=== PATIENT | female | born 1985 | race African-American/Black ===

== ENCOUNTER 2021-12-31 16:16 | Emergency (ER) | payer OTHER, SELFPAY ==
[2021-12-31 16:22] VITALS: BP 141/84; PULSE 64; RESP 18; TEMP 36.7; O2SAT 99; BMI 30.2
--- NOTE | 2021-12-31 16:48 | PC.NURSE ---
Patient provided stool and urine sample. Stool is bright red with mucus in it. Watery consistency.
[2021-12-31 16:53] LABS: Add Manual Diff / Slide Review NO; Basophils Absolute Auto 100 /uL (0-100); Basophils Percent Auto 0.7 % (0-2); Eosinophils Absolute Auto 0 /uL (0-450); Eosinophils Percent Auto 0.3 % (2-4); Hematocrit 38.5 % (36-46); Lymphocytes Absolute Auto 2600 /uL (1100-4500); Lymphocytes Percent Auto 18.4 % (25-40); Mean Corpuscular HGB Conc 33.6 % (30-36); Mean Corpuscular Hemoglobin 28.9 PG (26-34); Mean Corpuscular Volume 85.9 fL (80-100); Monocytes Absolute Auto 800 /uL (0-900); Monocytes Percent Auto 5.7 % (3-14); Neutrophils Absolute Auto 10400 /uL (1500-7000); Neutrophils Percent Auto 74.9 % (50-75); Platelet Count 303 X10^3/uL (150-400); Red Blood Cell Count 4.48 X10^6/uL (4.0-5.2); Red Cell Distribution Width 13.1 % (11.6-14.8); White Blood Cell Count 13.9 X10^3/uL (4.5-11.0)
[2021-12-31 17:22] LABS: Alanine Aminotransferase 15 IU/L (<35); Albumin 4.4 g/dL (3.5-5.0); Albumin Globulin Ratio 1.3 (1.0-2.8); Alkaline Phosphatase 77 U/L (38-126); Aspartate Aminotransferase 22 IU/L (14-36); BUN Creatinine Ratio 12.8 (6-22); Bilirubin Total 0.7 mg/dL (0.2-1.3); Blood Urea Nitrogen 12 mg/dL (7-17); Calcium 9.3 mg/dL (8.4-10.2); Carbon Dioxide 23 mmol/L (22-32); Chloride 106 mmol/L (98-107); Estimated Glomerular Filt Rate > 60 mL/min (>60); Globulin 3.3 g/dL (1.7-4.1); Glucose 93 mg/dL (70-100); HEMOLYSIS < 15 (0-50); Potassium 4.1 mmol/L (3.4-5.1); Sodium 139 mmol/L (137-145); Total Protein 7.7 g/dL (6.3-8.2)
--- NOTE | 2021-12-31 17:31 | DI.CT.S_ITS ---
PROCEDURE: CT ABDOMEN PELVIS W CON INDICATIONS: brbpr, low, transverse abdominal pain TECHNIQUE: After the administration of intravenous contrast, axial sections acquired from the lung bases to the pubic symphysis. Coronal and sagittal reformats were performed. For radiation dose reduction, the following was used: automated exposure control, adjustment of mA and/or kV according to patient size. COMPARISON: None. FINDINGS: Image quality: Excellent. Lung bases: Unremarkable. Heart: No significant findings. ABDOMEN: Liver: Unremarkable. Gallbladder: Unremarkable. Biliary ducts: Unremarkable. Pancreas: Unremarkable. Spleen: Unremarkable. Adrenal Glands: Unremarkable. Kidneys and Ureters: Unremarkable. Stomach and Bowel: There is a long segment of bowel wall thickening in the descending and sigmoid colon extending to the rectum. Small bowel loops and stomach are unremarkable. Peritoneum: Small amount of free fluid is seen in the pelvis. No pneumoperitoneum. Ventral Wall: No hernias. Abdominal Nodes: No retroperitoneal or mesenteric adenopathy by size criteria. Vessels: Aorta and inferior vena cava are normal in size. PELVIS: Pelvic Organs: Enhancing right ovarian corpus luteal cyst is seen. Additional right ovarian cysts are seen measuring up to 2 cm in size. Left ovary is unremarkable. Uterus is normal in size. Bladder: Unremarkable. Pelvic Nodes: No enlarged lymph nodes. Miscellaneous: No hernias are seen. Bones: Unremarkable. IMPRESSION: 1. Long segment bowel wall thickening in the descending and sigmoid colon and rectum is suspicious for a nonspecific proctocolitis. 2. Right ovarian corpus luteal cyst. Trace free fluid in the pelvis may indicate recent cyst rupture. Dictated by: Thierry Covington M.D. on 12/31/2021 at 18:11 Approved by: Thierry Covington M.D. on 12/31/2021 at 18:15
[2021-12-31 17:43] LABS: Lactate (Lactic Acid) 0.8 mmol/L (0.7-2.1)
--- NOTE | 2021-12-31 17:51 | ED.ABDPAIN ---
HPI - Abdominal Pain <RENE Sainz - Last Filed: 12/31/21 20:02> General Chief Complaint: Abdominal Pain Stated Complaint: Diarrhea/Stomach Pain/Bleeding Time Seen by Provider: 12/31/21 17:13 Source: patient Mode of arrival: Ambulatory History of Present Illness HPI narrative: This is a 36-year-old female who presents to the emergency department complaining of low transverse abdominal pain associated with nausea, cramping and bright red blood per rectum with diarrhea that started today. Patient states that this has never happened to her before, she denies any history of IBS, she denies any recent antibiotic use, she denies any recent fever, sore throat, cough, dysuria, weakness, or pain anywhere other than her low transverse abdomen. She denies any history of or abdominal surgery, denies any history of ovarian cysts or any abnormal vaginal discharge. She denies any urinary frequency, flank pain but endorses having chills today associated with her diarrhea. Related Data Home Medications Medication Instructions Recorded Confirmed valacyclovir 500 mg tablet 500 mg PO DAILY 12/31/21 12/31/21 Previous Rx's Medication Instructions Recorded amoxicillin 875 mg-potassium 1 tab PO BID 7 days #14 tabs 12/31/21 clavulanate 125 mg tablet hydrocortisone acetate 30 mg 30 mg [place] BEDTIME PRN rectal 12/31/21 rectal suppository (Proctocort) bleeding #12 ea Allergies Allergy/AdvReac Type Severity Reaction Status Date / Time No Known Drug Allergies Allergy Verified 12/31/21 16:25 Review of Systems <RENE Sainz - Last Filed: 12/31/21 20:02> Review of Systems Narrative: General: denies fever, chills, malaise, sweats, fatigue Head/Neck: denies headache, neck pain, dizziness Eyes: denies visual changes, eye pain Cardio: denies chest pain, palpitations, edema Respiratory: denies dyspnea, cough, orthopnea GI: Endorses lower abdominal pain with nausea, denies vomiting, endorses bright red blood per rectum starting today. : denies dysuria, hematuria, urinary retention, frequency or incontinence MSK: denies joint pain, muscle weakness Skin: denies rash, itching, skin lesions or other Neuro: denies numbness, tingling Patient History <RENE Sainz - Last Filed: 12/31/21 20:02> Social History Smoking Status: Never smoker Smoking Status: Never smoker alcohol intake frequency: holidays/special occasions only Substance Use Type: does not use Exam <RENE Sainz - Last Filed: 12/31/21 20:02> Narrative Exam Narrative: Independently reviewed vitals signs and nursing notes. General: cooperative, comfortable, in no acute distress, well groomed Head: atraumatic, symmetrical facial expressions Neck: supple Eyes: equal round and reactive, EOMI, conjunctiva normal Nose: nares patent, no rhinorrhea Mouth/Throat: moist mucus membranes Cardiovascular: regular rate and rhythm, no peripheral edema, warm extremities Respiratory: normal effort, able to speak in complete sentences, no audible wheezing, stridor, or rales. No retractions or tachypnea. GI: abdomen soft, tenderness over the left lower quadrant without masses, nondistended, no exquisite tenderness with exam, without guarding or rebound. MSK: moves all extremities, neurovascularly intact, no weakness, normal tone Skin: brisk capillary refill, no rash, no erythema Neuro: normal speech and cognition, A&O x3 Psych: mental status is grossly normal, congruent mood, normal affect, pleasant and cooperative Initial Vital Signs Initial Vital Signs: Vital Signs Temperature 98.0 F 12/31/21 16:22 Pulse Rate 64 12/31/21 16:22 Respiratory Rate 18 12/31/21 16:22 Blood Pressure 141/84 H 12/31/21 16:22 Pulse Oximetry 99 12/31/21 16:22 Oxygen Delivery Method 12/31/21 16:22 <Meghana Dowell DO - Last Filed: 01/01/22 07:56> Initial Vital Signs Initial Vital Signs: Vital Signs Temperature 98.0 F 12/31/21 16:22 Pulse Rate 64 12/31/21 16:22 Respiratory Rate 18 12/31/21 16:22 Blood Pressure 141/84 H 12/31/21 16:22 Pulse Oximetry 99 12/31/21 16:22 Oxygen Delivery Method 12/31/21 16:22 Course <RENE Sainz - Last Filed: 12/31/21 20:02> Orders Ordered: Discontinued Medications Amoxicillin/Clavulanate Potassium (Amoxicillin/Clav 875/125 Mg) 1 tab PO NOW ONE Stop: 12/31/21 19:13 Last Admin: 12/31/21 19:30 Dose: 1 tab Documented By: MICHAEL Sodium Chloride (Normal Saline 0.9%) 500 mls @ 1,000 mls/hr IV BOLUS ONE Stop: 12/31/21 17:59 Last Infusion: 12/31/21 19:22 Dose: 0 mls/hr Documented By: Admin: 12/31/21 18:11 Dose: 1,000 mls/hr Documented By: CTS Ketorolac Tromethamine (Ketorolac 30 Mg/Ml Vial) 15 mg IV NOW ONE Stop: 12/31/21 19:40 Last Admin: 12/31/21 19:44 Dose: Not Given Documented By: CTS Ondansetron HCl (Ondansetron 4 Mg/2 Ml Inj) 4 mg IV NOW ONE Stop: 12/31/21 17:31 Last Admin: 12/31/21 18:11 Dose: 4 mg Documented By: CTS Vital Signs Vital signs: Vital Signs - 8 hr 12/31/21 16:22 Temperature 98.0 F Pulse Rate 64 Respiratory Rate 18 Blood Pressure 141/84 H Pulse Oximetry 99 Oxygen Delivery Method Room Air <Meghana Dowell DO - Last Filed: 01/01/22 07:56> Orders Ordered: Discontinued Medications Amoxicillin/Clavulanate Potassium (Amoxicillin/Clav 875/125 Mg) 1 tab PO NOW ONE Stop: 12/31/21 19:13 Last Admin: 12/31/21 19:30 Dose: 1 tab Documented By: MICHAEL Sodium Chloride (Normal Saline 0.9%) 500 mls @ 1,000 mls/hr IV BOLUS ONE Stop: 12/31/21 17:59 Last Infusion: 12/31/21 19:22 Dose: 0 mls/hr Documented By: Admin: 12/31/21 18:11 Dose: 1,000 mls/hr Documented By: CTS Ketorolac Tromethamine (Ketorolac 30 Mg/Ml Vial) 15 mg IV NOW ONE Stop: 12/31/21 19:40 Last Admin: 12/31/21 19:44 Dose: Not Given Documented By: CTS Ondansetron HCl (Ondansetron 4 Mg/2 Ml Inj) 4 mg IV NOW ONE Stop: 12/31/21 17:31 Last Admin: 12/31/21 18:11 Dose: 4 mg Documented By: CTS Vital Signs Vital signs: Vital Signs - 8 hr 12/31/21 16:22 Temperature 98.0 F Pulse Rate 64 Respiratory Rate 18 Blood Pressure 141/84 H Pulse Oximetry 99 Oxygen Delivery Method Room Air MDM - Abdominal Pain <RENE Sainz - Last Filed: 12/31/21 20:02> Lab Data Result diagrams: 12/31/21 16:37 12/31/21 16:37 Labs: Lab Results 12/31/21 12/31/21 12/31/21 Range/Units 16:37 16:37 16:37 WBC 13.9 H (4.5-11.0) X10^3/uL RBC 4.48 (4.0-5.2) X10^6/uL Hgb 13.0 (12.0-16.0) g/dL Hct 38.5 (36-46) % MCV 85.9 (80-100) fL MCH 28.9 (26-34) PG MCHC 33.6 (30-36) % RDW 13.1 (11.6-14.8) % Plt Count 303 (150-400) X10^3/uL Neut % (Auto) 74.9 (50-75) % Lymph % (Auto) 18.4 L (25-40) % [place] % (Auto) 5.7 (3-14) % Eos % (Auto) 0.3 L (2-4) % Baso % (Auto) 0.7 (0-2) % Neut # (Auto) 77613 H (7096-3620) /uL Lymph # (Auto) 2600 (1078-6962) /uL [place] # (Auto) 800 (0-900) /uL Eos # (Auto) 0 (0-450) /uL Baso # (Auto) 100 (0-100) /uL Sodium 139 (137-145) mmol/L Potassium 4.1 (3.4-5.1) mmol/L Chloride 106 (98-107) mmol/L Carbon Dioxide 23 (22-32) mmol/L BUN 12 (7-17) mg/dL Creatinine 0.94 (0.52-1.04) mg/dL Estimated GFR > 60 (>60) mL/min BUN/Creatinine Ratio 12.8 (6-22) Glucose 93 (70-100) mg/dL Lactate (0.7-2.1) mmol/L Calcium 9.3 (8.4-10.2) mg/dL Total Bilirubin 0.7 (0.2-1.3) mg/dL AST 22 (14-36) IU/L ALT 15 (<35) IU/L Alkaline Phosphatase 77 (38-126) U/L Total Protein 7.7 (6.3-8.2) g/dL Albumin 4.4 (3.5-5.0) g/dL Globulin 3.3 (1.7-4.1) g/dL Albumin/Globulin Ratio 1.3 (1.0-2.8) Procalcitonin (<0.5) ng/mL Stl C. cayetanensis PCR Not detected (Not Detect) Stool Rotavirus (PCR) Not detected (Not Detect) Stool Adenovirus (PCR) Not detected (Not Detect) Stool Astrovirus (PCR) Not detected (Not Detect) Stool Cryptosporidium PCR Not detected (Not Detect) Stl E.coli Shiga Tox PCR Not detected (Not Detect) St Sh/Enteroin Ecoli PCR Not detected (Not Detect) Stool E coli O157 PCR Not detected (Not Detect) Stl Enterotoxigenic E PCR Not detected (Not Detect) Stool EPEC (PCR) Not detected (Not Detect) Stl E. histolytica PCR Not detected (Not Detect) Stool Giardia Lamblia PCR Not detected (Not Detect) Stool Sapovirus (PCR) Not detected (Not Detect) Stl P. shigelloides PCR Not detected (Not Detect) St Y.enterocolitica PCR Not detected (Not Detect) Stool Vibrio (PCR) Not detected (Not Detect) Stl Vibrio cholerae PCR Not detected (Not Detect) Stl Enteroaggr Ecoli PCR Not detected (Not Detect) Stl Norovirus GI/GII PCR Not detected (Not Detect) Campylobacter (PCR) Not detected (Not Detect) C. difficile Tox (PCR) Not detected (Not Detect) SARS-CoV-2 (PCR) (Negative) Salmonella (PCR) Not detected (Not Detect) 12/31/21 12/31/21 12/31/21 Range/Units 16:37 16:37 16:37 WBC (4.5-11.0) X10^3/uL RBC (4.0-5.2) X10^6/uL Hgb (12.0-16.0) g/dL Hct (36-46) % MCV (80-100) fL MCH (26-34) PG MCHC (30-36) % RDW (11.6-14.8) % Plt Count (150-400) X10^3/uL Neut % (Auto) (50-75) % Lymph % (Auto) (25-40) % [place] % (Auto) (3-14) % Eos % (Auto) (2-4) % Baso % (Auto) (0-2) % Neut # (Auto) (1546-3095) /uL Lymph # (Auto) (8599-5528) /uL [place] # (Auto) (0-900) /uL Eos # (Auto) (0-450) /uL Baso # (Auto) (0-100) /uL Sodium (137-145) mmol/L Potassium (3.4-5.1) mmol/L Chloride (98-107) mmol/L Carbon Dioxide (22-32) mmol/L BUN (7-17) mg/dL Creatinine (0.52-1.04) mg/dL Estimated GFR (>60) mL/min BUN/Creatinine Ratio (6-22) Glucose (70-100) mg/dL Lactate 0.8 (0.7-2.1) mmol/L Calcium (8.4-10.2) mg/dL Total Bilirubin (0.2-1.3) mg/dL AST (14-36) IU/L ALT (<35) IU/L Alkaline Phosphatase (38-126) U/L Total Protein (6.3-8.2) g/dL Albumin (3.5-5.0) g/dL Globulin (1.7-4.1) g/dL Albumin/Globulin Ratio (1.0-2.8) Procalcitonin 0.08 (<0.5) ng/mL Stl C. cayetanensis PCR (Not Detect) Stool Rotavirus (PCR) (Not Detect) Stool Adenovirus (PCR) (Not Detect) Stool Astrovirus (PCR) (Not Detect) Stool Cryptosporidium PCR (Not Detect) Stl E.coli Shiga Tox PCR (Not Detect) St Sh/Enteroin Ecoli PCR (Not Detect) Stool E coli O157 PCR (Not Detect) Stl Enterotoxigenic E PCR (Not Detect) Stool EPEC (PCR) (Not Detect) Stl E. histolytica PCR (Not Detect) Stool Giardia Lamblia PCR (Not Detect) Stool Sapovirus (PCR) (Not Detect) Stl P. shigelloides PCR (Not Detect) St Y.enterocolitica PCR (Not Detect) Stool Vibrio (PCR) (Not Detect) Stl Vibrio cholerae PCR (Not Detect) Stl Enteroaggr Ecoli PCR (Not Detect) Stl Norovirus GI/GII PCR (Not Detect) Campylobacter (PCR) (Not Detect) C. difficile Tox (PCR) (Not Detect) SARS-CoV-2 (PCR) Negative (Negative) Salmonella (PCR) (Not Detect) Point of care testing: Point of Care Testing Test Results Negative Urine Dip Bedside Urine Glucose Negative Bedside Urine Bilirubin - Negative Bedside Urine Ketone - Negative Urine Specific [place] 1.030 Bedside Urine Occult Blood - Negative Bedside Urine pH 6.0 Bedside Urine Protein - Negative Bedside Urine Urobilinogen - Negative Bedside Urine Nitrite - Negative Bedside Urine Leukocytes - Negative Esterase Imaging Data CT scan - abdomen/pelvis: Radiologist's Impression: PROCEDURE:? CT ABDOMEN PELVIS W CON ? INDICATIONS:? brbpr, low, transverse abdominal pain ? TECHNIQUE:? After the administration of intravenous contrast, axial sections acquired from the lung bases to the pubic symphysis.? Coronal and sagittal reformats were performed.? For radiation dose reduction, the following was used:? automated exposure control, adjustment of mA and/or kV according to patient size.? ? COMPARISON:? None. ? FINDINGS:? Image quality:? Excellent.? ? Lung bases:? Unremarkable. Heart:? No significant findings. ? ABDOMEN: Liver:? Unremarkable.? ? Gallbladder:? Unremarkable.? ? Biliary ducts:? Unremarkable.? ? Pancreas:? Unremarkable.? ? Spleen:? Unremarkable.? ? Adrenal Glands:? Unremarkable.? ? Kidneys and Ureters:? Unremarkable.? ? ? Stomach and Bowel:? There is a long segment of bowel wall thickening in the descending and sigmoid colon extending to the rectum.? Small bowel loops and stomach are unremarkable. Peritoneum:? Small amount of free fluid is seen in the pelvis.? No pneumoperitoneum. ? Ventral Wall: ? No hernias.? Abdominal Nodes:? No retroperitoneal or mesenteric adenopathy by size criteria.? Vessels:? Aorta and inferior vena cava are normal in size.? ? PELVIS: Pelvic Organs:? Enhancing right ovarian corpus luteal cyst is seen.? Additional right ovarian cysts are seen measuring up to 2 cm in size.? Left ovary is unremarkable.? Uterus is normal in size. Bladder:? Unremarkable.? ? Pelvic Nodes: No enlarged lymph nodes.? Miscellaneous: No hernias are seen. ? ? ? Bones:? Unremarkable. ? ? ? IMPRESSION:? 1. Long segment bowel wall thickening in the descending and sigmoid colon and rectum is suspicious for a nonspecific proctocolitis. 2. Right ovarian corpus luteal cyst.? Trace free fluid in the pelvis may indicate recent cyst rupture. ? ? Dictated by: Thierry Covington M.D. on 12/31/2021 at 18:11 ? ? Approved by: Thierry Covington M.D. on 12/31/2021 at 18:15 ? MDM Narrative Medical decision making narrative: This is a 36-year-old female who presents to the emergency department complaining of transverse lower abdominal pain which started yesterday, states that she was clammy has had nausea today, and cramping ever low abdomen with bright red blood per rectum. Patient denies any receptive anal intercourse or foreign body anal penetration. 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 Her lab work was significant for leukocytosis of 13.9, with a left shift of 10,400, no elevation in her liver enzymes, procalcitonin is 0.08 creatinine of 0.94, stool sample was obtained and was negative for all tested viruses and pathogens, her COVID PCR was negative, abdominal and pelvis CT with contrast was ordered for concern of possible diverticulitis or proctitis with generalized tenderness across her lower abdomen. CT abdomen was positive for long segment bowel wall thickening in the descending and sigmoid colon and rectum which is suspicious for nonspecific proctocolitis. Right ovarian corpus luteal cyst with a trace of free fluid in the pelvis indicating possible recent cyst rupture. Patient is feeling much better after 1 L of normal saline, Toradol and Zofran and was treated with Augmentin and given a prescription for b.i.d. dosing for the next seven days. She was also given hydrocortisone rectal suppositories as needed for her rectal bleeding. She is given strict return precautions for any worsening of her symptoms, if she develops a fever, worsening bleeding, if she is lightheaded or if her pain is out of proportion. Patient states understanding, she reports feeling much better, received her IV fluid and will follow-up with her PCP as needed. No peritoneal signs on abdominal exam. Serial abdominal exam without increase in abdominal pain. Given history and exam, low suspicion for acute abdominal process, such as acute cholecystitis, pancreatitis, perforated viscus, intra-abdominal abscess, peritonitis, atypical appendicitis, or torsion. Extensive conversation about ER return precautions and need for close follow-up. Patient is appropriate and amenable to discharge home. Vital signs are stable on repeat examination is unremarkable. Patient has been informed of results. Patient has been given strict return to ER precautions for any new or worsening symptoms. Patient understands to follow up closely with outpatient providers as instructed. Patient understands plan and agrees to discharge home. All questions and concerns answered at this time. <Meghana Dowell, DO - Last Filed: 01/01/22 07:56> Lab Data Labs: Lab Results 12/31/21 12/31/21 12/31/21 Range/Units 16:37 16:37 16:37 WBC 13.9 H (4.5-11.0) X10^3/uL RBC 4.48 (4.0-5.2) X10^6/uL Hgb 13.0 (12.0-16.0) g/dL Hct 38.5 (36-46) % MCV 85.9 (80-100) fL MCH 28.9 (26-34) PG MCHC 33.6 (30-36) % RDW 13.1 (11.6-14.8) % Plt Count 303 (150-400) X10^3/uL Neut % (Auto) 74.9 (50-75) % Lymph % (Auto) 18.4 L (25-40) % [place] % (Auto) 5.7 (3-14) % Eos % (Auto) 0.3 L (2-4) % Baso % (Auto) 0.7 (0-2) % Neut # (Auto) 40192 H (1312-7303) /uL Lymph # (Auto) 2600 (0888-2327) /uL [place] # (Auto) 800 (0-900) /uL Eos # (Auto) 0 (0-450) /uL Baso # (Auto) 100 (0-100) /uL Sodium 139 (137-145) mmol/L Potassium 4.1 (3.4-5.1) mmol/L Chloride 106 (98-107) mmol/L Carbon Dioxide 23 (22-32) mmol/L BUN 12 (7-17) mg/dL Creatinine 0.94 (0.52-1.04) mg/dL Estimated GFR > 60 (>60) mL/min BUN/Creatinine Ratio 12.8 (6-22) Glucose 93 (70-100) mg/dL Lactate (0.7-2.1) mmol/L Calcium 9.3 (8.4-10.2) mg/dL Total Bilirubin 0.7 (0.2-1.3) mg/dL AST 22 (14-36) IU/L ALT 15 (<35) IU/L Alkaline Phosphatase 77 (38-126) U/L Total Protein 7.7 (6.3-8.2) g/dL Albumin 4.4 (3.5-5.0) g/dL Globulin 3.3 (1.7-4.1) g/dL Albumin/Globulin Ratio 1.3 (1.0-2.8) Procalcitonin (<0.5) ng/mL Stl C. cayetanensis PCR Not detected (Not Detect) Stool Rotavirus (PCR) Not detected (Not Detect) Stool Adenovirus (PCR) Not detected (Not Detect) Stool Astrovirus (PCR) Not detected (Not Detect) Stool Cryptosporidium PCR Not detected (Not Detect) Stl E.coli Shiga Tox PCR Not detected (Not Detect) St Sh/Enteroin Ecoli PCR Not detected (Not Detect) Stool E coli O157 PCR Not detected (Not Detect) Stl Enterotoxigenic E PCR Not detected (Not Detect) Stool EPEC (PCR) Not detected (Not Detect) Stl E. histolytica PCR Not detected (Not Detect) Stool Giardia Lamblia PCR Not detected (Not Detect) Stool Sapovirus (PCR) Not detected (Not Detect) Stl P. shigelloides PCR Not detected (Not Detect) St Y.enterocolitica PCR Not detected (Not Detect) Stool Vibrio (PCR) Not detected (Not Detect) Stl Vibrio cholerae PCR Not detected (Not Detect) Stl Enteroaggr Ecoli PCR Not detected (Not Detect) Stl Norovirus GI/GII PCR Not detected (Not Detect) Campylobacter (PCR) Not detected (Not Detect) C. difficile Tox (PCR) Not detected (Not Detect) SARS-CoV-2 (PCR) (Negative) Salmonella (PCR) Not detected (Not Detect) 12/31/21 12/31/21 12/31/21 Range/Units 16:37 16:37 16:37 WBC (4.5-11.0) X10^3/uL RBC (4.0-5.2) X10^6/uL Hgb (12.0-16.0) g/dL Hct (36-46) % MCV (80-100) fL MCH (26-34) PG MCHC (30-36) % RDW (11.6-14.8) % Plt Count (150-400) X10^3/uL Neut % (Auto) (50-75) % Lymph % (Auto) (25-40) % [place] % (Auto) (3-14) % Eos % (Auto) (2-4) % Baso % (Auto) (0-2) % Neut # (Auto) (6440-3508) /uL Lymph # (Auto) (9129-6306) /uL [place] # (Auto) (0-900) /uL Eos # (Auto) (0-450) /uL Baso # (Auto) (0-100) /uL Sodium (137-145) mmol/L Potassium (3.4-5.1) mmol/L Chloride (98-107) mmol/L Carbon Dioxide (22-32) mmol/L BUN (7-17) mg/dL Creatinine (0.52-1.04) mg/dL Estimated GFR (>60) mL/min BUN/Creatinine Ratio (6-22) Glucose (70-100) mg/dL Lactate 0.8 (0.7-2.1) mmol/L Calcium (8.4-10.2) mg/dL Total Bilirubin (0.2-1.3) mg/dL AST (14-36) IU/L ALT (<35) IU/L Alkaline Phosphatase (38-126) U/L Total Protein (6.3-8.2) g/dL Albumin (3.5-5.0) g/dL Globulin (1.7-4.1) g/dL Albumin/Globulin Ratio (1.0-2.8) Procalcitonin 0.08 (<0.5) ng/mL Stl C. cayetanensis PCR (Not Detect) Stool Rotavirus (PCR) (Not Detect) Stool Adenovirus (PCR) (Not Detect) Stool Astrovirus (PCR) (Not Detect) Stool Cryptosporidium PCR (Not Detect) Stl E.coli Shiga Tox PCR (Not Detect) St Sh/Enteroin Ecoli PCR (Not Detect) Stool E coli O157 PCR (Not Detect) Stl Enterotoxigenic E PCR (Not Detect) Stool EPEC (PCR) (Not Detect) Stl E. histolytica PCR (Not Detect) Stool Giardia Lamblia PCR (Not Detect) Stool Sapovirus (PCR) (Not Detect) Stl P. shigelloides PCR (Not Detect) St Y.enterocolitica PCR (Not Detect) Stool Vibrio (PCR) (Not Detect) Stl Vibrio cholerae PCR (Not Detect) Stl Enteroaggr Ecoli PCR (Not Detect) Stl Norovirus GI/GII PCR (Not Detect) Campylobacter (PCR) (Not Detect) C. difficile Tox (PCR) (Not Detect) SARS-CoV-2 (PCR) Negative (Negative) Salmonella (PCR) (Not Detect) Point of care testing: Point of Care Testing Test Results Negative Urine Dip Bedside Urine Glucose Negative Bedside Urine Bilirubin - Negative Bedside Urine Ketone - Negative Urine Specific [place] 1.030 Bedside Urine Occult Blood - Negative Bedside Urine pH 6.0 Bedside Urine Protein - Negative Bedside Urine Urobilinogen - Negative Bedside Urine Nitrite - Negative Bedside Urine Leukocytes - Negative Esterase Discharge Plan Departure Patient Disposition: Home Clinical Impression: Proctocolitis Instructions: DI for Colitis, Proctitis Activity Restrictions/Additional Instructions: *You have been diagnosed with proctocolitis which is inflammation of the bowel in the descending and sigmoid colon and rectum. Please take this antibiotic twice a day for the next seven days, I will call you if we need to change her antibiotic regimen. Please come back to the emergency department if you develop worsening of this, a fever, has significant amount of blood in your stool in your feeling ill. I hope that you feel better soon, dehydrated, try to stick to a clear diet or at least a bland diet for the next couple of days. Thank you for trusting us with your care, and for your patience today. Your stool was negative for all tested infectious sources of diarrhea including C difficile, Salmonella, Campylobacter, your COVID was negative as well and the rest of your blood work looks okay. Your white blood cell count was slightly elevated, please follow-up with your PCP after a week or return to the ER if you have any worsening. I hope you feel better soon. *What to do: *Please continue to take your regular medications as directed. [ x] New medication prescriptions sent to your pharmacy: [[facility] ] [ ] New medication written as a paper prescription [ ] No new medications given *Please follow up with your primary care provider in 2-3 days, call for an appointment. Let them know you were seen in the Emergency Department and that we asked that you be seen for follow-up. We will electronically transmit a record of today's note if your PCP is in our system *If you do not have a primary care provider please contact [phone] to establish care with one of [facility] primary care providers. *Return to Emergency Department if you should have any new, worsening or concerning symptoms, such as [fever greater than 101F, chills, worsening pain, persistent vomiting or other bothersome symptoms] Prescriptions: New amoxicillin-pot clavulanate 875-125 mg tablet 1 tab PO BID 7 Days Qty: 14 0RF hydrocortisone acetate [Proctocort] 30 mg suppository 30 mg [place] BEDTIME PRN (Reason: rectal bleeding) Qty: 12 0RF No Action valacyclovir 500 mg tablet 500 mg PO DAILY Referrals: Miscellaneous,Doctor, [Primary Care Provider] - Visit Report Forms: Patient Portal/API <Meghana Dowell DO - Last Filed: 01/01/22 07:56> Cosign ED Attending [place] Attestation: I was immediately available in the department for consultation. Documentation has been reviewed. I agree with assessment and plan.
[2021-12-31 18:01] LABS: Procalcitonin 0.08 ng/mL (<0.5)
[2021-12-31 18:09] LABS: COVID19 -Nasal RAPID Negative (Negative)
[2021-12-31] MEDS: ONDANSETRON 4 MG/2 ML INJ IV (18:11)
[2021-12-31] MEDS: SODIUM CHLORIDE 0.9% 500 ML 1000 ML IV (18:11)
[2021-12-31 19:24] LABS: Adenovirus F 40/41 Not Detected (Not Detect); Astrovirus Not Detected (Not Detect); Campylobacter Not Detected (Not Detect); Clostridium difficile toxin AB Not Detected (Not Detect); Cryptosporidium Not Detected (Not Detect); Cyclospora cayetanensis Not Detected (Not Detect); Entamoeba histolytica Not Detected (Not Detect); Enteroaggregative E.coli Not Detected (Not Detect); Enteropathogenic E.coli Not Detected (Not Detect); Enterotoxigenic E.coli It/st Not Detected (Not Detect); Giardia lamblia Not Detected (Not Detect); Norovirus GI/GII Not Detected (Not Detect); Plesiomonsa shigelloides Not Detected (Not Detect); Rotavirus A Not Detected (Not Detect); Salmonella Not Detected (Not Detect); Sapovirus Not Detected (Not Detect); Shiga-like toxin-prod E.coli Not Detected (Not Detect); Shigella/Enteroinvasive E.coli Not Detected (Not Detect); Vibrio Not Detected (Not Detect); Vibrio cholerae Not Detected (Not Detect); Yersinia enterocolitica Not Detected (Not Detect)
[2021-12-31] MEDS: AMOXICILLIN/CLAV 875/125 MG 1 TAB PO (19:30)
== END 2021-12-31 19:44 | disposition home or self-care (01) ==
PROVIDERS: Emergency Medicine; Emergency Provider Nurse Practitioner Critical Care Medicine
DX: K52.9 Noninfective gastroenteritis and colitis, unspecified (principal); K62.89 Other specified diseases of anus and rectum; R10.30 Lower abdominal pain, unspecified; Z20.822 Contact with and (suspected) exposure to COVID-19
CPT/HCPCS: 36415; 74177; 80053; 81003; 81025; 83605; 84145; 85025; 87507; 87635; 93005; 96361; 96374; 99284; C9803; J2405